=== PATIENT | female | born 1970 | race Caucasian/White ===

== ENCOUNTER 2023-01-25 14:00 | Outpatient (RCR) | payer OTHER, SELFPAY ==
--- NOTE | 2022-10-23 08:52 | ONC.NURNOTE ---
Received phone call from Radiation Oncology that patient has an appointment at 0800 on Sunday the to start her radiation. Patient was scheduled at the infusion center right after this for teaching, labs, and infusion.
--- NOTE | 2022-10-24 12:03 | URNOTE ---
Received request for authorization for Docetaxel ([id number]) and Ondansetron ([id number]). Per Alida at [facility], prior authorization is not required. Call ref # [id number]
[2022-10-30 09:21] LABS: Basophils Absolute Auto 0.01 K/uL (0.00-0.30); Basophils Percent Auto 0.1 % (0.0-3.0); Hematocrit 37.9 % (33.0-51.0); Hemoglobin* 12.5 gm/dL (12.0-16.0); Immature Granulocytes Abs Auto 0.01 K/uL (0.00-0.30); Immature Granulocytes Pct Auto 0.1 %; Lymphocytes Percent Auto 9.1 % (20-44); Mean Corpuscular HGB Conc 33 gm/dL (32-36); Mean Corpuscular Hemoglobin 31 pg (26-34); Mean Corpuscular Volume 95 fL (80-100); Monocytes Percent Auto 6.3 % (0.0-11.0); Neutrophils Percent Auto 84.4 % (42.0-72.0); Platelet Count* 258 K/uL (140-440); RDW Coefficient of Variation % 13.5 % (11.5-15.5); Red Blood Count 3.98 m/uL (4.00-5.20); White Blood Count* 6.71 K/uL (4.50-11.00)
[2022-10-30 09:34] LABS: Slide Review Reflex No
[2022-10-30 09:38] LABS: Albumin* 4.7 g/dL (3.3-5.0); Chloride* 104 mmol/L (96-114); Potassium* 3.5 mmol/L (3.6-5.1); Sodium* 140 mmol/L (135-149)
[2022-10-30 09:40] LABS: Bilirubin Total* 0.7 mg/dL (0.1-1.5); Creatinine* 0.7 mg/dL (0.5-1.5); Estimated Glomerular Filt Rate 104 ml/min
[2022-10-30 09:41] LABS: Alanine Aminotransferase* 19 U/L (4-35); Alkaline Phosphatase* 80 U/L (40-150); Aspartate Amino Transferase* 31 U/L (12-35); Blood Urea Nitrogen* 24 mg/dL (7-30); Calcium* 9.6 mg/dL (8.4-10.6); Carbon Dioxide* 27 mmol/L (20-32); Glucose* 110 mg/dL (60-115); Total Protein* 7.6 g/dL (6.0-8.3)
[2022-10-30 10:32] VITALS: BP 111/66; PULSE 71; RESP 16; TEMP 36.9; O2SAT 97
[2022-10-30] MEDS: ONDANSETRON 2 MG/ML inj 8 MG IVP (10:45)
[2022-10-30] MEDS: 0.9 % SODIUM CHLORIDE 250 ml IV (10:45)
--- NOTE | 2022-10-31 14:46 | ONC.NURNOTE ---
Left message with pt to call [facility] to update on how she is doing following 1st docetaxel yesterday. Pt also scheduled to see on car supervisor on 11/06/22 1030.
--- NOTE | 2022-10-31 15:05 | ONC.NURNOTE ---
teaching prechemotherapy yesterday reviewed docetaxol side effects, discussed self care at home, reviewed after hour phone numbers and fever management, treatment routine, reviewed contents of new chemo binder referral to dietitian for challenges post op with painful chewing, patient follows a pescatarian/vegan diet and would like some feedback on protein, calories, and supplemental drinks, discussed exercise benefits in managing fatigue discussed supplements with recommendation to hold all supplements until she has completed her XRT questions addressed with patient and daughter URIAH and consents reviewed and signed
--- NOTE | 2022-10-31 15:19 | ONC.NURNOTE ---
PSDS Screening = 5 SW referral placed for check in on treatment week #2 on 11/06/22
--- NOTE | 2022-11-01 11:59 | PC.NURSE ---
Called pt today to check in after her 1st chemo on Sunday. LM on primary line and invited pt to call back with any questions or concerns. On the message, RN reviewed next appt date/time. Will not call again as this was the 2nd call.
[2022-11-06 09:06] LABS: Basophils Percent Auto 0.9 % (0.0-3.0); Eosinophils Percent Auto 1.2 % (0.0-7.0); Hematocrit 39.8 % (33.0-51.0); Immature Granulocytes Pct Auto 0.3 %; Lymphocytes Percent Auto 25.8 % (20-44); Mean Corpuscular HGB Conc 33 gm/dL (32-36); Mean Corpuscular Hemoglobin 31 pg (26-34); Mean Corpuscular Volume 96 fL (80-100); Neutrophils Percent Auto 59.8 % (42.0-72.0); Platelet Count* 189 K/uL (140-440); RDW Coefficient of Variation % 13.1 % (11.5-15.5); Red Blood Count 4.14 m/uL (4.00-5.20); White Blood Count* 3.25 K/uL (4.50-11.00)
[2022-11-06 09:22] LABS: Albumin* 4.3 g/dL (3.3-5.0); Chloride* 101 mmol/L (96-114); Sodium* 135 mmol/L (135-149)
[2022-11-06 09:23] LABS: Potassium* 4.6 mmol/L (3.6-5.1)
[2022-11-06 09:25] LABS: Alanine Aminotransferase* 14 U/L (4-35); Alkaline Phosphatase* 58 U/L (40-150); Aspartate Amino Transferase* 24 U/L (12-35); Bilirubin Total* 0.8 mg/dL (0.1-1.5); Blood Urea Nitrogen* 32 mg/dL (7-30); Carbon Dioxide* 31 mmol/L (20-32); Creatinine* 0.8 mg/dL (0.5-1.5); Est. Creatinine Clearance* 74.02; Estimated Glomerular Filt Rate 89 ml/min; Glucose* 94 mg/dL (60-115)
[2022-11-06 09:26] LABS: Calcium* 9.2 mg/dL (8.4-10.6)
[2022-11-06 09:35] LABS: Slide Review Reflex No
[2022-11-06] MEDS: 0.9 % SODIUM CHLORIDE 250 ml IV (10:41)
[2022-11-06] MEDS: ONDANSETRON 2 MG/ML inj 8 MG IVP (10:41)
[2022-11-06] MEDS: dexAMETHasone 10 MG in 0.9 % SODIUM CHLORIDE 100 ml 100 ML 404 MG IVPB (10:56)
[2022-11-06 11:30] VITALS: BP 132/73; PULSE 70; O2SAT 97
[2022-11-06 11:40] VITALS: BP 117/72; PULSE 77; O2SAT 98
[2022-11-06] MEDS: diphenhydrAMINE 25 MG CAPSULE PO (11:46)
[2022-11-06] MEDS: dexAMETHasone 4 MG/ML VIAL 10 MG IV (11:48)
[2022-11-06 11:55] VITALS: BP 99/63; PULSE 68; O2SAT 97
--- NOTE | 2022-11-06 13:33 | PC.NURSE ---
Pt present at [facility] for 2nd of 2 Docetaxel infusion. After pre-meds of Zofran 8 mg IV push and Dexamethasone 10 mg IVPB, Docetaxel was started after double check process per protocol. About 10 minutes into the infusion, pt alerted a RN passing by that she didn't feel well. Pt was bright red from her neck up. Chemo stopped and this RN and Sirisha Brown APRN were notified. NS started and JIM did full interview (see her notes in an addendum to Dr. Dyer's provider visit from today). Dexamethasone 10 mg IV push was given along with Benadryl 20 mg po. NS ran in via gravity for about 30 later infusion restarted and pt tolerated well to completion.
--- NOTE | 2022-11-06 15:20 | NUTR.NU ---
Nutrition Update: RDN received referral for patient 10/30/22. RDN scheduled appointment with patient on 11/06/22 - however when it came time for appointment patient declined visit and reported that she believes she is doing well at this point and did not have any concerns at this time. She understands the importance of calories and protein. RDN provided contact information to patient and encouraged her to call with questions or with any difficulties. RDN will attempt to follow-up with patient in a few weeks.
[2022-11-15 11:49] VITALS: BP 114/66; PULSE 62; RESP 16; TEMP 36.2; O2SAT 100
[2022-11-15 11:51] VITALS: BP 112/76; PULSE 59
[2022-11-15] MEDS: 0.9 % SODIUM CHLORIDE 1000 ml 1,000 ML IV (12:08)
--- NOTE | 2022-11-15 12:56 | ONC.NURNOTE ---
Received order for IVF for today 11/15, tomorrow 11/16, 11/17 and M-W-F next week. Pt here for IVF today; unable to come to [facility] for IVF 11/16, 11/17 or 11/24 d/t conflicting work schedule. 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 If pt is unable to receive IVF there, she will call [facility] 11/17 to set up possible Sat 11/18, Sat 11/25 hydration at [facility]. Notified [facility] of pt's plan and appts.
[2022-11-15 13:15] VITALS: BP 112/63; PULSE 80
[2022-11-20] MEDS: 0.9 % SODIUM CHLORIDE 1000 ml 1,000 ML IV ×2 (11:30→12:35)
[2022-11-20 11:36] VITALS: BP 107/72; PULSE 85; RESP 16; TEMP 36.7; O2SAT 96
[2022-11-20 12:26] VITALS: BP 113/69; BP 96/61
[2022-11-22 09:22] VITALS: BP 119/69; PULSE 63; RESP 16; TEMP 36.3; O2SAT 99
[2022-11-22 09:24] VITALS: BP 110/69
[2022-11-22] MEDS: 0.9 % SODIUM CHLORIDE 1000 ml 1,000 ML IV ×2 (09:32→10:35)
[2022-11-22 10:30] VITALS: BP 111/67; BP 123/65
== END 2023-04-28 23:59 | disposition home or self-care (01) ==
LOC: CCIC 14:00
PROVIDERS: Clinical Nurse Specialist; Visit Provider Internal Medicine Medical Oncology
DX: C09.9 Malignant neoplasm of tonsil, unspecified (principal)
CPT/HCPCS: 36415; 80053; 85025; 96360; 96361; 96366; 96376; 96413; 99202; 99204; 99205; 99211; 99212; A9270; J1100; J2405; J7030; J7050; J9171

== ENCOUNTER 2023-04-10 16:02 | Outpatient (RCR) | payer OTHER, SELFPAY | END 2023-08-08 23:59 | disposition home or self-care (01) | PROVIDERS: Visit Provider Physician Assistant | DX: C09.9 Malignant neoplasm of tonsil, unspecified (principal); M43.6 Torticollis; M54.2 Cervicalgia; L59.9 Disorder of the skin and subcutaneous tissue related to radiation, unspecified; Z51.89 Encounter for other specified aftercare | CPT/HCPCS: 97110; 97140; 97161 ==